=== PATIENT | male | born 1995 ===

== ENCOUNTER 2018-11-21 08:41 | Emergency (ER) | payer OTHER ==
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
== END 2018-11-21 12:54 | disposition short-term general hospital (02) ==
LOC: ER 08:41
DX: S02.640A Fracture of ramus of mandible, unspecified side, initial encounter for closed fracture (principal); S02.650A Fracture of angle of mandible, unspecified side, initial encounter for closed fracture; Y09 Assault by unspecified means; Y93.9 Activity, unspecified; Y92.9 Unspecified place or not applicable; J45.909 Unspecified asthma, uncomplicated
CPT/HCPCS: 70450; 70486; 72125; 76377; 99285